=== PATIENT | male | born 2005 | race Caucasian/White ===

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

== ENCOUNTER 2024-07-05 19:14 | Emergency (ER) | payer SELFPAY ==
[~2024-07-05] VITALS: Ht 180.3 cm; Wt 83.9 kg
[~2024-07-05 19:14] MED LIST changes: +PAXIL10 MG PO; +PREDNISONE20 M1 PO; +SEPTDS PO
[2024-07-05 20:03] LABS: BILIRUBIN Negative (Negative); BLOOD Negative (Negative); CLARITY Turbid (Clear); COLOR Yellow (Yellow); GLUCOSE Negative (Negative); KETONE Negative (Negative); LEUKO ESTERASE Negative (Negative); NITRITE Negative (Negative); PH 7.5 (4.5-8.0); SPECIFIC GRAVITY 1.025 (1.001-1.030)
[2024-07-05 20:14] LABS: BACTERIA 3+
[2024-07-06] MEDS ORDERED: MELOXICAM15 MG PO (17:24)
== END 2024-07-05 20:53 | disposition home or self-care (01) ==
LOC: ED 19:14
PROVIDERS: Physician Assistant Medical
DX: N50.812 Left testicular pain (principal); N50.82 Scrotal pain; Z88.2 Allergy status to sulfonamides; Z88.8 Allergy status to other drugs, medicaments and biological substances; Z79.899 Other long term (current) drug therapy

== ENCOUNTER 2024-07-06 16:21 | Emergency (ER) | payer SELFPAY ==
[~2024-07-06] VITALS: Ht 180.3 cm; Wt 83.9 kg
[2024-07-06] MEDS ORDERED: Acetaminophen/Oxycodone 5 MG/325 MG TABLET PO ONE (17:05)
[2024-07-06] MEDS ORDERED: MELOXICAM15 MG PO (17:24)
== END 2024-07-06 17:32 | disposition home or self-care (01) ==
LOC: ED 16:21
DX: N50.812 Left testicular pain (principal); N50.811 Right testicular pain; Z79.899 Other long term (current) drug therapy

== ENCOUNTER 2024-10-09 09:08 | Emergency (ER) | payer SELFPAY ==
[~2024-10-09] VITALS: Ht 180.3 cm
[~2024-10-09 09:08] MED LIST changes: +MELOXICAM15 MG PO
[2024-10-09] MEDS ORDERED: SODIUM CHLORIDE 0.9% 1,000 ML IV ONE (09:30)
[2024-10-09] MEDS ORDERED: diphenhydrAMINE hydrochloride 50 MG/ML VIAL IV ONE (09:30)
[2024-10-09] MEDS ORDERED: Metoclopramide Hydrochloride 10 MG/2 ML VIAL IV ONE (09:30)
[2024-10-09] MEDS ORDERED: IOHEXOL 300 MG/ML 100 ML VIAL IV ONE (09:40)
[2024-10-09 09:52] LABS: BASO # 0.0 10*3/uL (0.0-0.1); BASO % 0.2 % (0.0-1.0); EOS # 0.1 10*3/uL (0.0-0.4); EOS % 0.9 % (1.0-4.0); MEAN CELL VOLUME 90.8 fl (80.0-94.0); MEAN CORPUSCULAR HGB 31.4 pg (27.0-31.0); MEAN PLATELET VOLUME 8.9 fl (9.6-12.3); MONO # 0.3 10*3/uL (0.1-1.0); MONO % 4.1 % (3.0-9.0); NEUT # 7.2 10*3/uL (2.3-7.9); NEUT % 89.9 % (47.0-73.0); NUCLEATED RED BLOOD CELL 0.0 % (0.0-0.0); NUCLEATED RED BLOOD CELL 0.0 10*3/uL (0.0-0.0); PLATELET COUNT AUTOMATED 185 10*3/uL (130-400); RED CELL DISTRI WIDTH 11.7 % (0-14.5)
[2024-10-09 10:13] LABS: BUN 18 mg/dl (9-23); SGPT/ALT 15 U/L (5-49)
[2024-10-09 10:14] LABS: BILIRUBIN Negative (Negative); BLOOD Negative (Negative); CLARITY Cloudy (Clear); COLOR Yellow (Yellow); KETONE Trace (Negative); LEUKO ESTERASE Negative (Negative); NITRITE Negative (Negative); SPECIFIC GRAVITY 1.025 (1.001-1.030); UROBILINOGEN 0.2 E.U./dl (0.0-1.0)
[2024-10-09 10:15] LABS: ETHYL ALCOHOL < 3.0 mg/dl (<3)
[2024-10-09 10:18] LABS: PH >= 9.0 (4.5-8.0)
[2024-10-09 10:23] LABS: URINE AMPHETAMINES Negative (1000ng/ml); URINE BARBITURATES Negative (200ng/ml); URINE BENZODIAZEPINES Negative (200ng/ml); URINE CANNABINOIDS (THC) Positive (50ng/ml); URINE COCAINE Positive (300ng/ml); URINE METHADONE Negative (300ng/ml); URINE OPIATES Negative (300ng/ml); URINE PHENCYCLIDINE Negative (25ng/ml)
[2024-10-09 11:00] LABS: BACTERIA 4+
[2024-10-09] MEDS ORDERED: CIPRO500 MG PO (11:29)
[2024-10-09] MEDS ORDERED: REGLAN10 M1 PO (11:29)
== END 2024-10-09 11:47 | disposition home or self-care (01) ==
LOC: ED 09:08
PROVIDERS: Internal Medicine
DX: R11.2 Nausea with vomiting, unspecified (principal); F12.90 Cannabis use, unspecified, uncomplicated; N39.0 Urinary tract infection, site not specified; F19.10 Other psychoactive substance abuse, uncomplicated; Z79.899 Other long term (current) drug therapy